=== PATIENT | male | born 1965 | race Two or more races ===

== ENCOUNTER 2017-07-31 14:08 | Emergency (ER) | payer OTHER ==
[2017-07-31 19:11] VITALS: RESP 16
--- NOTE | 2017-07-31 19:55 | ED ---
Alcohol HPI - General Chief Complaint: Alcohol Stated Complaint: DEPRESSION, ETOH Time Seen by Provider: 07/31/17 14:10 Source: patient, EMS Mode of arrival: EMS Limitations: no limitations - History of Present Illness Initial Comments: Patient presents with acute alcohol intoxication. He denies any fever, chills, chest pain or shortness of breath. He has no belly or back pain. He has no nausea or vomiting. He denies injuries. He denies syncope or presyncope episodes. He does admit to drinking. - Related Data Home Medications Medication Instructions Recorded Confirmed Gabapentin [Neurontin] 100 mg PO TID 07/31/17 07/31/17 Hydrochlorothiazide [Hydrodiuril] 25 mg PO DAILY 07/31/17 07/31/17 Ibuprofen [Motrin] 600 mg PO Q8HR PRN 07/31/17 07/31/17 Mirtazapine [Remeron] 15 mg PO HS 07/31/17 07/31/17 Triamcinolone 0.025% Cream 1 applic TOPICAL DAILY PRN 07/31/17 07/31/17 [Kenalog 0.025% Cream] hydrOXYzine HCL [Atarax] 25 mg PO DAILY 07/31/17 07/31/17 Allergies Allergy/AdvReac Type Severity Reaction Status Date / Time Penicillins Allergy Unknown Verified 07/31/17 14:51 Review of Systems ROS Statement: Those systems with pertinent positive or pertinent negative responses have been documented in the HPI. ROS Other: All systems not noted in ROS Statement are negative. Past Medical History Past Medical History: Hypertension Additional Past Medical History / Comment(s): ETOH abuse History of Any Multi-Drug Resistant Organisms: None Reported Additional Past Surgical History / Comment(s): esophageal surgery Past Psychological History: Anxiety, Depression Smoking Status: Current every day smoker Past Alcohol Use History: Abuse Past Drug Use History: None Reported General Exam Limitations: no limitations General appearance: alert, in no apparent distress Head exam: Present: atraumatic, normocephalic, normal inspection Eye exam: Present: normal appearance, PERRL, EOMI. Absent: scleral icterus, conjunctival injection, periorbital swelling ENT exam: Present: normal exam, mucous membranes moist Neck exam: Present: normal inspection. Absent: tenderness, meningismus, lymphadenopathy Respiratory exam: Present: normal lung sounds bilaterally. Absent: respiratory distress, wheezes, rales, rhonchi, stridor Cardiovascular Exam: Present: regular rate, normal rhythm, normal heart sounds. Absent: systolic murmur, diastolic murmur, rubs, gallop, clicks GI/Abdominal exam: Present: soft, normal bowel sounds. Absent: distended, tenderness, guarding, rebound, rigid Extremities exam: Present: normal inspection, full ROM, normal capillary refill. Absent: tenderness, pedal edema, joint swelling, calf tenderness Back exam: Present: normal inspection Neurological exam: Present: alert, oriented X3, CN II-XII intact Psychiatric exam: Present: normal affect, normal mood Skin exam: Present: warm, dry, intact, normal color. Absent: rash Course Vital Signs 07/31/17 07/31/17 14:11 19:10 Temperature 96.8 F L Pulse Rate 99 78 Respiratory 17 16 Rate Blood Pressure 162/105 128/78 O2 Sat by Pulse 94 L 98 Oximetry Medical Decision Making - Medical Decision Making patient presents with acute alcohol intoxication. His examination is unremarkable. He hasn't elevated alcohol level. He is kept in the emergency department so clinically sober. Disposition Clinical Impression: Alcoholic intoxication Disposition: HOME SELF-CARE Condition: Good Instructions: Alcohol Intoxication (ED) Referrals: Kathryn Hsu MD [Primary Care Provider] - 1-2 days Time of Disposition: 03:00
[2017-07-31] MEDS ORDERED: GABAPENTIN 100 MG CAP PO STA (23:35)
[2017-07-31] MEDS ORDERED: MIRTAZAPINE 15 MG TAB PO STA (23:35)
[2017-08-01] MEDS ORDERED: HYDROCHLOROTHIAZIDE 25 MG TAB PO STA (02:11)
[2017-08-01 03:34] VITALS: BP 156/83; PULSE 83; TEMP 98
== END 2017-08-01 03:38 | disposition home or self-care (01) ==
LOC: EC 14:08
DX: F10.129 Alcohol abuse with intoxication, unspecified (principal); I10 Essential (primary) hypertension; F32.9 Major depressive disorder, single episode, unspecified; F41.9 Anxiety disorder, unspecified; F17.200 Nicotine dependence, unspecified, uncomplicated; Z79.899 Other long term (current) drug therapy; Z88.0 Allergy status to penicillin
CPT/HCPCS: 80306; 82075; 99284